=== PATIENT | female | born 1965 | race American Indian/Alaskan Native ===

== ENCOUNTER 2016-11-16 10:49 | Outpatient (CLI) | payer MEDICAID ==
--- NOTE | 2016-11-16 15:44 | Cat Scan Report ---
CT LUMBAR SPINE WITHOUT CONTRAST: 11/16/16 10:49:00 CLINICAL: Spondylosis with radiculopathy. TECHNIQUE: Volumetric acquisition and 1.25-mm axial scan reconstructions without contrast. Sagittal and coronal reformats were performed. FINDINGS: Normal vertebral body height, alignment and disk spaces. No fracture or subluxation.No pars defect. L1-2:Intact disc. Bilateral facet hypertrophy. L2-3:Intact disc. Bilateral facet hypertrophy. L3-4:Mild circumferential disc bulge. Large anterior osteophytes. Moderate bilateral facet hypertrophy. No neural foraminal stenosis. L4-5:Moderate size broad-based central disc protrusion. Marked bilateral facet hypertrophy and moderate left neural foraminal stenosis related to both disc protrusion and facet enlargement. L5-S1:Moderate circumferential disc bulge. Bilateral facet hypertrophy and moderate bilateral neural foraminal stenosis. IMPRESSION: Moderate degenerative change with multilevel facet joint disease and neural foraminal stenosis.
== END 2016-11-16 10:50 | disposition home or self-care (01) ==
LOC: SPVIMAG 10:49
PROVIDERS: ATTEND Physical Medicine & Rehabilitation
DX: M47.27 Other spondylosis with radiculopathy, lumbosacral region (principal); M99.53 Intervertebral disc stenosis of neural canal of lumbar region
CPT/HCPCS: 72131

== ENCOUNTER 2018-09-19 06:21 | Day surgery (SDC) | payer MEDICARE ==
--- NOTE | 2018-09-19 08:07 | Anesthesia Consultation ---
Anesthesia Consult and Med Hx Date of service: 09/19/18 - Airway Anesthetic Teeth Evaluation: Chipped ROM Head & Neck: Adequate Mental/Hyoid Distance: Adequate Mallampati Class: Class III Intubation Access Assessment: Probably Good - Pre-Operative Health Status ASA Pre-Surgery Classification: ASA3 Proposed Anesthetic Plan: MAC - Pulmonary Hx Respiratory Symptoms: Yes (reactive airway disease) Hx Sleep Apnea: Yes - Cardiovascular System Hx Hypertension: Yes - Endocrine Hx Insulin Dependent Diabetes: Yes - Additional Comments Anesthesia Medical History Comments: C/s in 1995; Cholecystectomy in 2005; meniscus repair on left knee in 2012 & 2013.
--- NOTE | 2018-09-19 08:08 | Anesthesia Day of Surgery ---
Anesthesia Day of Surgery - Day of Surgery Patient Examined: Yes Patient H&P Reviewed: Yes Patient is NPO: Yes
[2018-09-19] MEDS ORDERED: NACL 0.9% 1000 ML 1,000 ML IV SCH (09:00)
[2018-09-19] MEDS ORDERED: VERSED ONE (09:06)
[2018-09-19] MEDS ORDERED: DIPRIVAN 10 MG/ML IV ONE (09:06)
[2018-09-19] MEDS ORDERED: WATER FOR IRRIG STERILE ONE (09:14)
[2018-09-19 10:17] VITALS: BP 106/67
--- NOTE | 2018-09-19 10:54 | Operative Report ---
PREOPERATIVE DIAGNOSIS: Morbid obesity. POSTOPERATIVE DIAGNOSES: Gastric ulcers, gastritis, gastric polyps. PROCEDURE: EGD with biopsies. COMPLICATIONS: None. BLEEDING: Minimal. SPECIMENS: 1. Antral biopsies for H. pylori. 2. Gastric polyps (antrum). INDICATIONS: The patient is a 52-year-old female with history of morbid obesity. She is here for preoperative EGD in preparation for weight loss surgery. Informed consent was obtained. DESCRIPTION OF PROCEDURE: The patient was brought to the operating suite where she was placed in the left lateral decubitus position and underwent MAC anesthesia. A bite block was placed and a timeout was called. A standard adult gastroscope was inserted into the oropharynx, down the esophagus, into the first portion of the duodenum. On retroflexion view, she was noted to have no hiatal hernia. There was evidence of gastritis located in the antrum as well as 2 small gastric ulcers in the antrum. I then took antral biopsies for H. pylori. I noted a gastric polyp located on the greater curvature of the stomach in the antrum measuring less than a centimeter. Biopsies of this was taken as well. After this, the air was desufflated, the gastroscope was removed. The patient tolerated the procedure well and was transferred to PACU in stable condition. [facility]# [id number] TONY/GABRIELLE
== END 2018-09-19 06:22 | disposition home or self-care (01) ==
LOC: GIO 06:21
PROVIDERS: ATTEND Specialist
DX: K29.70 Gastritis, unspecified, without bleeding (principal); E66.01 Morbid (severe) obesity due to excess calories; K25.9 Gastric ulcer, unspecified as acute or chronic, without hemorrhage or perforation; E78.00 Pure hypercholesterolemia, unspecified; I10 Essential (primary) hypertension; G47.30 Sleep apnea, unspecified; M19.90 Unspecified osteoarthritis, unspecified site; E11.9 Type 2 diabetes mellitus without complications; F32.9 Major depressive disorder, single episode, unspecified; Z88.5 Allergy status to narcotic agent; Z91.013 Allergy to seafood; Z79.899 Other long term (current) drug therapy; Z79.84 Long term (current) use of oral hypoglycemic drugs; Z90.49 Acquired absence of other specified parts of digestive tract; Z98.890 Other specified postprocedural states; Z88.8 Allergy status to other drugs, medicaments and biological substances; Z68.41 Body mass index [BMI] 40.0-44.9, adult
CPT/HCPCS: 43239; 82962; 88305; 88342; J2250; J2704; J7030

== ENCOUNTER 2018-12-05 11:45 | Inpatient (IN) | payer MEDICARE ==
--- NOTE | 2018-12-25 11:10 | Anesthesia Consultation ---
Anesthesia Consult and Med Hx Date of service: 12/26/18 - Airway Anesthetic Teeth Evaluation: Chipped ROM Head & Neck: Adequate Mental/Hyoid Distance: Adequate Mallampati Class: Class II Intubation Access Assessment: Probably Good - Pre-Operative Health Status ASA Pre-Surgery Classification: ASA3 Proposed Anesthetic Plan: General - Pulmonary Hx Smoking: Yes (Former) Hx Asthma: Yes ("Reactive Upper airway disease" last used inhaler 3-4mos ago) Hx Respiratory Symptoms: Yes (reactive airway disease) Hx Sleep Apnea: Yes (No CPAP) - Cardiovascular System Hx Hypertension: Yes (since 2013) Hx Coronary Artery Disease: No (Negative heart cath 2013) Hx Peripheral Vascular Disease: Yes - Central Nervous System Hx Psychiatric Problems: No - Endocrine Hx Insulin Dependent Diabetes: Yes - Hematic Hx Anemia: Yes (Past hx) - Other Systems Hx Alcohol Use: Yes (Occas) Hx Cancer: No Hx Obesity: Yes - Additional Comments Anesthesia Medical History Comments: No records available-pt states negative workup for gastric surgery
[2018-12-26] MEDS ORDERED: LACTATED RINGERS 1,000 ML IV SCH ×2 (06:00→07:00)
[2018-12-26] MEDS ORDERED: SUBLIMAZE IV PRN (06:00)
[2018-12-26] MEDS ORDERED: ZOFRAN IV PRN ×2 (06:00→06:33)
[2018-12-26] MEDS ORDERED: APRESOLINE IV PRN (06:33)
[2018-12-26] MEDS ORDERED: REGLAN IV PRN (06:33)
[2018-12-26] MEDS ORDERED: NACL BACTERIOSTATIC INFILTRATI ONE (06:47)
[2018-12-26] MEDS ORDERED: FLAGYL 500 MG/100 ML 500 MG/100 ML BAG IV NR (07:00)
[2018-12-26] MEDS ORDERED: LOVENOX SUB-Q NR (07:00)
[2018-12-26] MEDS ORDERED: LEVAQUIN 500MG/100ML 500 MG/100 ML BAG IV NR (07:00)
[2018-12-26] MEDS ORDERED: TRANSDERM-SCOP TD SCH (07:00)
--- NOTE | 2018-12-26 07:21 | Anesthesia Day of Surgery ---
Anesthesia Day of Surgery - Day of Surgery Patient Examined: Yes Patient H&P Reviewed: Yes Patient is NPO: Yes
[2018-12-26] MEDS ORDERED: XYLOCAINE 1% 20 mL ONE (07:38)
[2018-12-26] MEDS ORDERED: MARCAINE-EPI 0.5%-1:200,000 INFILTRATI ONE ×2 (07:39→10:27)
[2018-12-26] MEDS ORDERED: PEPCID IV ONE ×2 (07:44→10:00)
[2018-12-26] MEDS ORDERED: PEPCID PO NR (08:00)
[2018-12-26] MEDS ORDERED: VERSED IV NR (08:00)
[2018-12-26] MEDS ORDERED: KETALAR ONE (09:09)
[2018-12-26] MEDS ORDERED: SUBLIMAZE ONE (09:09)
[2018-12-26] MEDS ORDERED: DIPRIVAN 10 MG/ML IV ONE (09:09)
[2018-12-26] MEDS ORDERED: BRIDION IV ONE (10:21)
[2018-12-26] MEDS ORDERED: DECADRON ONE (10:25)
[2018-12-26] MEDS ORDERED: XYLOCAINE MPF 2% ONE (10:25)
[2018-12-26] MEDS ORDERED: ZEMURON IV ONE (10:25)
[2018-12-26] MEDS ORDERED: ROBINUL ONE (10:25)
[2018-12-26] MEDS ORDERED: BLOXIVERZ ONE (10:25)
[2018-12-26] MEDS ORDERED: QUELICIN ONE (10:25)
[2018-12-26] MEDS ORDERED: ZOFRAN ONE (10:25)
[2018-12-26] MEDS ORDERED: XYLOCAINE 1% 20 mL INFILTRATI ONE (10:28)
[2018-12-26] MEDS ORDERED: NACL 0.9% IR ONE ×2 (10:28→10:29)
[2018-12-26] MEDS ORDERED: NEO SYNEPHRINE/NS Syringe(OR USE) IV ONE (10:29)
[2018-12-26] MEDS ORDERED: DILAUDID ONE (11:33)
[2018-12-26] MEDS: DILAUDID IM PRN (11:33)
[2018-12-26] MEDS: TORADOL IV SCH ×3 (12:28→20:29)
[2018-12-26] MEDS: MYLICON PO PRN (14:50)
--- NOTE | 2018-12-26 16:33 | Operative Report ---
SURGEON: Scar Salgado MD PLASTIC PRESS MOLDER: Sasha Mercedes MD Fellow; Mandy Hatch MD, CSA PREOPERATIVE DIAGNOSIS: Morbid obesity. POSTOPERATIVE DIAGNOSIS: Morbid obesity. OPERATIONS: 1. Laparoscopic Annamarie-en-Y gastric bypass, 150 cm antecolic antegastric. 2. Laparoscopic hiatal hernia repair. 3. Upper endoscopy. ANESTHESIA: General endotracheal anesthesia. SPECIMENS: None. COMPLICATIONS: None. BLEEDING: Minimal. INDICATIONS: The patient is a 53-year-old female with a history of morbid obesity. She has undergone preoperative bariatric workup and presents for her planned operation. The risks, complications and alternatives had been discussed with the patient and informed consent was obtained. DESCRIPTION OF PROCEDURE: The patient was brought to the operating room, where she was placed in the supine position and underwent general endotracheal intubation. She received preoperative antibiotics and DVT prophylaxis. She was prepped and draped in the usual sterile fashion and then a timeout was called to ensure proper patient, indication and operation. Local analgesia was injected into the left upper quadrant with insertion of a Veress needle. Insufflation pressure was achieved to 15 mmHg. An intra-abdominal access was obtained via a 5 mm trocar at the prior incision site above the umbilicus in the midline. On intraabdominal view, there was no injury. Under direct visualization, a 12 mm port was placed to the right of the midclavicular line and 5 mm ports were placed in the right lateral subxiphoid and left lateral quadrant. The ligament of Treitz was identified and the bowel was run for 50 cm and then transected at this point with a white load stapler. The staple lines were cauterized for hemostasis. The bowel was run and an additional 150 cm antegrade and a jejunojejunostomy was then performed with another white load stapler. The common enterotomy was closed with another staple load. A Brolin stitch was placed and then the mesenteric defect was closed with a running 0 Surgidac suture. After this, the liver retractor was placed and the patient was repositioned in steep reverse Trendelenburg. The angle of His was dissected free and the gastroesophageal fat pad was removed. The hiatus was dissected out and she had a moderate hiatal hernia that was freed and reduced. Next, a 30 mL gastric pouch was sized starting with a retrogastric dissection utilizing electrocautery and blunt dissection. The gastric pouch was created utilizing several blue staple loads with the staple lines cauterized after each fire load for hemostasis. An anterior cruroplasty was then done using a 0 Surgidac suture in a U-stitch fashion. The Annamarie limb was then brought up to the gastric pouch using a medial and lateral 0 Surgidac sutures. A gastrotomy and enterotomy were performed and a gastrojejunostomy was then completed with a white load stapler. The common enterotomy was then closed with 2 layers of 2-0 running V-Loc suture. After this, Annamarie limb was clamped and the anastomosis was submerged in water. An upper endoscopy was performed, which was negative for any leak or intraluminal bleeding. Air was suctioned out. The gastroscope was removed. A 500 mL of normal saline was instilled into the left and right upper quadrant to help with postoperative gas pain and then all the ports were removed. Additional local was injected to all the port sites and the wounds were closed with 4-0 Monocryl. Sterile bandages were placed over top. The patient was then extubated and left the operating room in stable condition. Counts were correct. FINDINGS: 1. Moderate-sized hiatal hernia. 2. Negative leak test. JOB# [id number] TONY/GABRIELLE HARDIN
[2018-12-26] MEDS ORDERED: GLUCOPHAGE PO SCH (17:00)
--- NOTE | 2018-12-26 17:08 | Post Anesthesia Evaluation ---
- Post Anesthesia Evaluation Patient Participated: Yes Airway Patent: Yes Stable Respiratory Function: Yes Nausea/Vomiting: No Temp > 96.8F: Yes Pain Manageable: Yes Adequeate Hydration: Yes Anesthesia Complications: No
[2018-12-26] MEDS: PEPCID PO SCH (21:31)
[2018-12-26] MEDS: COREG PO SCH (21:31)
[2018-12-26] MEDS: NEURONTIN PO SCH (21:31)
[2018-12-26] MEDS ORDERED: ELAVIL PO SCH (22:00)
[2018-12-26] MEDS ORDERED: PRAVACHOL PO SCH (22:00)
[2018-12-27] MEDS: MYLICON PO PRN ×2 (00:05→12:54)
[2018-12-27] MEDS: DILAUDID IM PRN (00:06)
[2018-12-27] MEDS: COREG PO SCH ×2 (00:33→11:55)
[2018-12-27 04:39] LABS: Basophils % (Auto) 0.3 % (0.0-1.8); Eosinophils % (Auto) 0.1 % (0.0-4.3); Hematocrit 33.5 % (30.3-42.9); Hemoglobin 11.3 gm/dl (10.1-14.3); Lymphocytes # (Auto) 1.5 K/mm3 (1.2-5.4); Mean Corpuscular HGB Conc 34 % (30-34); Mean Corpuscular Volume 91 fl (79-97); Monocytes # (Auto) 1.1 K/mm3 (0.0-0.8); Platelet Count 403 K/mm3 (140-440); Red Blood Count 3.67 M/mm3 (3.65-5.03); Red Cell Distribution Width 14.6 % (13.2-15.2)
[2018-12-27 04:52] LABS: BUN/Creatinine Ratio 17; Blood Urea Nitrogen 15 mg/dL (7-17); Calcium 8.9 mg/dL (8.4-10.2); Hemolysis Index 32
[2018-12-27] MEDS: TORADOL IV SCH ×3 (05:12→14:52)
[2018-12-27] MEDS: NEURONTIN PO SCH ×2 (05:18→15:15)
--- NOTE | 2018-12-27 06:51 | Discharge Summary ---
Providers - Providers Date of Admission: 12/26/18 06:08 Date of discharge: 12/27/18 Attending physician: SAMANTA SALGADO Primary care physician: ALONZO LUO Hospitalization Reason for admission: postop care Condition: Good Procedures: 12/26/18: Laparoscopic RYGB, HHR Hospital course: 53F admitted after her operation for routine postop monitoring. She had no major issues, ambulated, pain controlled, tolerated a CLD, and was dc home POD1. Disposition: DC-01 TO HOME OR SELFCARE Core Measure Documentation - Palliative Care Palliative Care/ Comfort Measures: Not Applicable - Core Measures Any of the following diagnoses?: none - VTE Discharge Requirements Deep Vein Thrombosis/Pulmonary Embolism Present on Admission: No - Acute PR Discharge Requirements Aspirin at discharge: No Reason for no aspirin on DC: Surgical contraindication - Heart Failure Discharge Requirements TEO/ARB for LVSD if EF <40%: Not Applicable - Stroke Discharge Requirements Statin for LDL = or >70 mg/dl on DC: Not Applicable Exam - Physical Exam Narrative exam: Gen: AAO, NAD Heart: RRR Lungs: CTAB Abd: MO, soft, NT, ND. Bandages c/d/i. Ext: No LE edema - Constitutional Vitals: Temp Pulse Resp BP Pulse Ox 98.0 F 97 H 18 126/77 97 12/27/18 03:54 12/27/18 03:54 12/27/18 03:54 12/27/18 03:54 12/27/18 03:54 Plan Diet: clear liquids Wound: keep clean and dry Special Instructions: no heavy lifting Additional Instructions: Cesar Salgado as scheduled Follow up with: ALONZO LUO MD [Primary Care Provider] - 7 Days
[2018-12-27] MEDS ORDERED: LOVENOX SUB-Q SCH (10:00)
[2018-12-27] MEDS ORDERED: ZESTRIL PO SCH (10:00)
[2018-12-27] MEDS: PEPCID PO SCH ×2 (12:00)
[2018-12-27 16:48] VITALS: BP 105/61
== END 2018-12-27 15:00 | disposition home or self-care (01) | DRG 621 ==
LOC: 3A 12-26 06:08 → 3B-SURG 12-26 12:03
PROVIDERS: ADMIT Specialist; ATTEND Specialist
PROC: 0D164ZA Bypass Stomach to Jejunum, Percutaneous Endoscopic Approach (ICD-10-PCS; principal; 2018-12-26)
PROC: 0BQT4ZZ Repair Diaphragm, Percutaneous Endoscopic Approach (ICD-10-PCS; 2018-12-26)
PROC: 0DJ08ZZ Inspection of Upper Intestinal Tract, Via Natural or Artificial Opening Endoscopic (ICD-10-PCS; 2018-12-26)
DX: E66.01 Morbid (severe) obesity due to excess calories (principal); E78.00 Pure hypercholesterolemia, unspecified; K30 Functional dyspepsia; G47.50 Parasomnia, unspecified; K21.9 Gastro-esophageal reflux disease without esophagitis; K44.9 Diaphragmatic hernia without obstruction or gangrene; J45.909 Unspecified asthma, uncomplicated; I10 Essential (primary) hypertension; E11.51 Type 2 diabetes mellitus with diabetic peripheral angiopathy without gangrene; Z79.84 Long term (current) use of oral hypoglycemic drugs; Z84.89 Family history of other specified conditions; Z88.5 Allergy status to narcotic agent; Z91.013 Allergy to seafood; Z88.8 Allergy status to other drugs, medicaments and biological substances; Z91.018 Allergy to other foods; Z87.891 Personal history of nicotine dependence; Z68.42 Body mass index [BMI] 45.0-49.9, adult; Z90.49 Acquired absence of other specified parts of digestive tract
CPT/HCPCS: 36415; 80048; 82962; 85025; G0378; A4217; A9270-GY; J0330; J1100; J1170; J1650; J1885; J1956; J2250; J2370; J2405; J2704; J2710; J2765; J3010; J7120

== ENCOUNTER 2021-09-03 11:47 | Inpatient (IN) | payer MEDICARE ==
[2021-09-03] MEDS ORDERED: ALTEPLASE 100 MG INJ KIT ONE (12:00)
[2021-09-03] MEDS ORDERED: ALTEPLASE 100 MG INJ KIT IV ONE ×2 (12:13)
[2021-09-03] MEDS ORDERED: SODIUM CHLORIDE 0.9% 50 ML IVPB IV ONE (12:13)
--- NOTE | 2021-09-03 12:16 | Cat Scan Report ---
CT head/brain wo con INDICATION / CLINICAL INFORMATION: 55 years Female; CODE STROKE CALL ER MAIN AT 8199 Stroke symptoms. TECHNIQUE: Routine CT head without contrast. All CT scans at this location are performed using CT dos e reduction for ALARA by means of automated exposure control. COMPARISON: None. FINDINGS: BRAIN / INTRACRANIAL CONTENTS: There are milder cerebral white matter changes including the external capsules most consistent with microvascular angiopathy. The ventricular system is within normal limit s in size and configuration. There is no CT evidence of acute intracranial hemorrhage or significant mass effect. ORBITS: There is a focal defect involving medial left orbital wall which appears to be developmental or related to previous trauma. SINUSES / MASTOIDS: The paranasal sinuses are otherwise clear. CRANIOCERVICAL JUNCTION: No significant abnormality. ADDITIONAL FINDINGS: None. IMPRESSION: 1. There is mild microvascular angiopathy as detailed above without CT evidence of acute intracranial hemorrhage. The study was specified as code stroke and called emergently to Dr. Briceno in the ER at 11:10 AM Cent ral standard time. Signer Name: Jordin Schroeder MD Signed: 09/03/2021 12:12 PM Workstation Name[id number]
--- NOTE | 2021-09-03 12:33 | Emergency Department Report ---
Blank Doc - Documentation Documentation: Welcome Teleneurology Consult Note # Demographics Consult Type: Acute Stroke Level 1 (0-4.5 hrs) Patient Location: Emergency Room First Name: Khadra Last Name: Sherif Gender: Male Facility: [facility] Time of Initial Page ( Time): 09/03/2021, 11:22 Time of Return Call ( Time): 09/03/2021, 11:22 # HPI History: pt had a syncopal episode around 1030, was having chest pain. some telephoto engineer weakness reported. possibly well at 1030 she rerots left sdied numbness Possible Thrombolytic candidate: not on warfarin or NOACs no intracranial hemorrhage history no recent major surgery no known active major internal bleeding no known blood disorders # Scores Time of exam and NIHSS (): 09/03/2021, 11:43 Level of Consciousness 1a: [0] = Alert; keenly responsive LOC Questions 1b: [0] = Answers both questions correctly LOC Commands 1c: [0] = Performs both tasks correctly Best Gaze 2: [0] = Normal Visual 3: [0] = No visual loss Facial Palsy 4: [1] = Minor paralysis Motor Arm Left 5a: [2] = Some effort against gravity Motor Arm Right 5b: [0] = No drift Motor Leg Left 6a: [0] = No drift Motor Leg Right 6b: [0] = No drift Limb Ataxia 7: [0] = Absent Sensory 8: [0] = Normal Best Language 9: [0] = No aphasia Dysarthria 10: [1] = Fmcw-ed-brqqqjip dysarthria Extinction and Inattention 11: [0] = No abnormality NIHSS Total: 4 # Data Head CT: no bleed preliminarily reviewed by me, please refer to radiology read for official reading preliminary read # Assessment Impression: Ischemic Stroke (Acute) # Plan Thrombolytic/Intervention: IV Thrombolysis Intraarterial Exclusion: clinically consistent with small vessel disease Time IV Thrombolytic Recommended (): 09/03/2021, 11:45 Blood Pressure Management: nicardipine labetolol Labs: hemoglobin A1c lipid panel Imaging: (urgency: STAT): CT Angiogram Head and CT Angiogram Neck AND call back with results if abnormal Imaging: (urgency: routine): MRI Brain without contrast Diagnostic Test: echo without bubble study Therapy/Evaluation: NPO until swallow evaluation PT/OT evaluation speech/swallow consultation Medication: start statin with goal of LDL < 70 DVT Prophylaxis: SCD Thrombolytic Administration Recommendations: Unable to obtain informed consent due to medical condition. No family available. In my opinion, benefits of IV thrombolytic therapy outweigh risks. I have collected independent history specific to time last normal or last known well. We have collaborated with the ED provider and at this time, we have the most current timeline with the information that is available. BP goal< 180/105 for 24hrs post Thrombolytic administration Use Labetolol 10-20mg IV prn or Nicardipine gtt to maintain BP parameters No antiplatelets or anticoagulants for next 24 hrs unless indicated for emergent IA procedure or other life threatening situation ICU admission Call back if there is any decline in neurological condition Other: LDL < 70 If patient has any neurological deterioration please call me back immediately permissive hypertension telemetry monitoring I have discussed my recommendations with the referring provider # [employer] Telemedicine: Interactive 2 way audio and visual telecommunication technology was utilized during this visit
[2021-09-03 12:49] LABS: Hematocrit 33.2 % (30.3-42.9); Hemoglobin 11.6 gm/dl (10.1-14.3); Mean Corpuscular HGB Conc 35 % (30-34); Mean Corpuscular Volume 97 fl (79-97); Platelet Count 433 K/mm3 (140-440); Red Blood Count 3.44 M/mm3 (3.65-5.03); Red Cell Distribution Width 12.9 % (13.2-15.2)
[2021-09-03 12:53] LABS: Basophils % (Auto) 0.7 % (0.0-1.8); Eosinophils # (Auto) 0.1 K/mm3 (0.0-0.4); Eosinophils % (Auto) 2.1 % (0.0-4.3); Lymphocytes # (Auto) 1.9 K/mm3 (1.2-5.4); Lymphocytes % (Auto) 46.2 % (13.4-35.0); Monocytes # (Auto) 0.6 K/mm3 (0.0-0.8); Monocytes % (Auto) 13.6 % (0.0-7.3)
--- NOTE | 2021-09-03 12:53 | Cat Scan Report ---
CTA head with intravenous contrast CLINICAL HISTORY: stroke sx LEFT SIDE WEAKNESS 100 ML OMNI 350 TECHNIQUE: 0.625 mm thick contiguous axial scans were obtained from the skull base to the skull vertex during r apid bolus administration of intravenous contrast material. Multiplanar reconstructions were produced in the coronal and sagittal planes. In addition 3 plane MIP instructions were produced and reviewed for this report. The axial source images and reconstructed images were reviewed for this report. CONTRAST DOSE REPORT: Omnipaque 350: 100 ml administered intravenously. All CT scans at this location are performed using CT dose reduction for ALARA by means of automated e xposure control. FINDINGS: Internal carotid arteries: Calcified atherosclerotic plaque is seen at the ophthalmic and clinoid seg ments of both internal carotid arteries with extension into the communicating segment on the right. T here is no definite associated stenosis. Middle cerebral arteries:Normal and symmetrical M1 segments of the middle cerebral arteries are demon strated. No abnormalities are seen on evaluation of the insular or opercular branches. Anterior cerebral arteries:Bilaterally symmetrical A1 segments are demonstrated. No abnormalities are seen along the course of the A2 segments or their visualized pericallosal branches. I do not identif y an anterior communicating artery. Vertebral arteries:Bilaterally symmetrical vertebral arteries are demonstrated. Both vertebral arteri es contribute to the basilar artery origin. Basilar artery:Basilar artery has an unremarkable appearance. Posterior cerebral arteries:Bilaterally symmetrical posterior cerebral arteries are identified. A ri ght-sided posterior communicating artery is identified. [place]:Not intact. see above. Dural sinuses: Dural venous sinuses are well demonstrated on this exam. There is no evidence of dural sinus thrombosis. IMPRESSION: 1. No indication of intercranial stenosis or large vessel occlusion. Signer Name: Yousuf Hector MD Signed: 09/03/2021 12:49 PM Workstation Name: [id number]
--- NOTE | 2021-09-03 12:53 | Cat Scan Report ---
CTA neck without and with intravenous contrast material CLINICAL HISTORY: stroke sx LEFT SIDE WEAKNESS 100 ML OMNI 350 TECHNIQUE: Following acquisition of a timing bolus 0.625 mm thick contiguous axial scans were obtained from aort ic arch to the skull base during rapid bolus intravenous contrast infusion. In addition to evaluation of axial source images multiplanar reconstructions were produced and reviewed for this report. 3 mulugeta ne MIP reconstructions were produced and reviewed. Contrast dose report: Omnipaque 350: 100 ml, administered intravenously All CT examinations performed at this facility utilize modulated dose reduction, iterative reconstruc tion or weight-based dosing, as appropriate, to obtain a radiation dose which is as low as can reason ably be achieved. FINDINGS: Thoracic aorta:No abnormalities are identified along the course of the thoracic aorta..The origins of the great vessels have an unremarkable appearance. Brachiocephalic artery, left common carotid arter y origin and left subclavian artery all have an unremarkable appearance. Right carotid artery:No abnormalities are seen along the course of the RCCA, at the right carotid bif urcation or along the cervical portions of the HENRY. Left carotid artery: No abnormalities are noted along the course of the left common carotid artery, a t the left carotid bifurcation or along the course of the cervical segments of the LICA. Posterior circulation:Left vertebral artery is dominant. Right vertebral artery terminates at the lev el of the right PICA. This is a normal anatomical variation. The basilar artery has an unremarkable a ppearance. The degree of stenosis, if any, is determined utilizing NASCET like criteria. In this case there is no indication of hemodynamically significant stenosis at the carotid bifurcations or elsewhere. Thyroid gland is enlarged consistent with thyroid goiter. Several low-attenuation thyroid nodules or cysts are demonstrated bilaterally. These are all less than 8 mm in diameter. Based on patient's age and lesion size criteria no further evaluation is required. Evaluation of the nonvascular soft tissue structures reveal no additional abnormality. There is no in dication of cervical lymphadenopathy. No abnormalities are seen along the course of the airway. Visua lized portions of the parotid glands and the submandibular salivary glands have a normal appearance. Evaluation of the lung apices reveals no evidence of lung nodule or infiltrate. Evaluation of the cervical spine is remarkable remarkable for a moth-eaten appearance of vertebrae at and below the C6 level. This is most pronounced at the T1 vertebral body where there is discontinuit y of cortex on the posterior aspect of the T1 vertebral body.. Increased paraspinous soft tissue full ness is also observed at the T1 level. Consider the possibility of metastatic disease or multiple mye barbara. Is there a known primary neoplasm Further evaluation with MRI cervical, thoracic and lumbar spi ne could be considered. IMPRESSION: 1. No indication of hemodynamically significant stenosis or large vessel occlusion. 2. Incidental thyroid nodules in the left lobe measuring 0.7 cm in a patient greater than age 35. Rec ommendation based on ACR guidelines: No further evaluation required. 3. Enlarged thyroid. Consider thyroid goiter. 4. Abnormal appearing cervical and upper thoracic vertebrae. This is most pronounced at the T1 level. Possibilities of metastatic disease or multiple myeloma should be considered. Further evaluation is advised. CTA head with intravenous contrast CLINICAL HISTORY: stroke sx LEFT SIDE WEAKNESS 100 ML OMNI 350 TECHNIQUE: 0.625 mm thick contiguous axial scans were obtained from the skull base to the skull vertex during r apid bolus administration of intravenous contrast material. Multiplanar reconstructions were produced in the coronal and sagittal planes. In addition 3 plane MIP instructions were produced and reviewed for this report. The axial source images and reconstructed images were reviewed for this report. CONTRAST DOSE REPORT: Omnipaque 350: 100 ml administered intravenously. All CT scans at this location are performed using CT dose reduction for [place] by means of automated e xposure control. FINDINGS: Internal carotid arteries: Calcified atherosclerotic plaque is seen at the ophthalmic and clinoid seg ments of both internal carotid arteries with extension into the communicating segment on the right. T here is no definite associated stenosis. Middle cerebral arteries:Normal and symmetrical M1 segments of the middle cerebral arteries are demon strated. No abnormalities are seen on evaluation of the insular or opercular branches. Anterior cerebral arteries:Bilaterally symmetrical A1 segments are demonstrated. No abnormalities are seen along the course of the A2 segments or their visualized pericallosal branches. I do not identif y an anterior communicating artery. Vertebral arteries:Bilaterally symmetrical vertebral arteries are demonstrated. Both vertebral arteri es contribute to the basilar artery origin. Basilar artery:Basilar artery has an unremarkable appearance. Posterior cerebral arteries:Bilaterally symmetrical posterior cerebral arteries are identified. A ri ght-sided posterior communicating artery is identified. [place]:Not intact. see above. Dural sinuses: Dural venous sinuses are well demonstrated on this exam. There is no evidence of dural sinus thrombosis. IMPRESSION: 1. No indication of intercranial stenosis or large vessel occlusion. Signer Name: Yousuf Hector MD Signed: 09/03/2021 12:48 PM Workstation Name: [id number]
[2021-09-03 12:59] LABS: INR 0.93 (0.87-1.13); Partial Thromboplastin Time 27.8 Sec. (24.2-36.6); Thrombin Time 17.6 Sec. (15.1-19.6)
[2021-09-03 13:01] LABS: Creatine Kinase MB 2.1 ng/mL (0.0-4.0)
[2021-09-03] MEDS ORDERED: MAGNESIUM HYDROXIDE (MOM) ORAL LIQD UDC PO PRN (13:12)
[2021-09-03] MEDS ORDERED: ONDANSETRON 4 MG/2 ML INJ IV PRN (13:12)
[2021-09-03] MEDS ORDERED: METOCLOPRAMIDE 10 MG TAB PO PRN (13:12)
[2021-09-03] MEDS ORDERED: HYDROmorphone 1 MG/1 ML INJ IV PRN (13:12)
[2021-09-03] MEDS ORDERED: PROMETHAZINE 25 MG RECT SUPP PR PRN (13:12)
[2021-09-03] MEDS ORDERED: oxyCODONE /ACETAMINOPHEN 5-325MG TAB PO PRN (13:12)
--- NOTE | 2021-09-03 13:12 | History and Physical Report ---
History of Present Illness Chief complaint: I feel weak, left side History of present illness: 55 YO Female with HTN, DM, GERD, HLD, OA, Mild Intermittent Asthma, Metabolic Syndrome presents ED for evaluation. Patient reports "I do not feel well". Patient states that she experienced a sudden onset of left-sided weakness, slurred speech, and facial droop at 1030 hrs. Patient notified her daughter via text. EMS was notified and upon arrival the patient was found down and unable to stand and bear weight on her left lower extremity. The patient was found to be in distress with a focal neurologic deficit. A code stroke was called and the patient was transported to [facility] for further care and evaluation of the af orementioned symptoms. The patient was seen and evaluated in the emergency department. All lab and imaging studies reviewed. Patient found to have clinical findings consistent with acute CVA. Patient treated with TPA in the emergency department. Teleneurology consulted. Patient admitted to ICU and initiated on CVA protocol. Patient denies fever, chills, chest pain, palpitation, productive cough, skin rash or recent contact, or known exposure to COVID-19. No prior admission for review. All medication listed at time of admission has been reconciled. Advanced care planning conducted in ED. Past History Past Medical History: arthritis, diabetes, GERD, hypertension, hyperlipidemia, other (See HPI) Past Surgical History: cholecystectomy Social history: , Lives alone. denies: smoking, alcohol abuse, prescription drug abuse Family history: diabetes, hypertension Medications and Allergies Allergies Allergy/AdvReac Type Severity Reaction Status Date / Time acetaminophen [From Vicodin] Allergy THROAT Verified 12/15/18 15:35 SWELLS codeine Allergy THROAT Verified 12/15/18 15:35 SWELLS hydrocodone [From Vicodin] Allergy THROAT Verified 12/15/18 15:35 SWELLS Penicillins Allergy Throat Verified 12/15/18 15:35 swells wheat Allergy Hives Verified 12/15/18 15:35 FRESH FISH Allergy Hives Uncoded 09/19/18 06:28 Home Medications Medication Instructions Recorded Confirmed Last Taken Type Fosinopril Sodium 10 - 12.5 mg PO DAILY 09/19/18 12/26/18 12/25/18 History Januvia 100 mg PO DAILY 09/19/18 12/26/18 12/25/18 History Jardiance 10 mg PO DAILY 09/19/18 12/26/18 12/25/18 History Simvastatin 40 mg PO DAILY 09/19/18 12/26/18 12/25/18 History metFORMIN 1,000 mg PO BID 09/19/18 12/26/18 12/25/18 History Amitriptyline [Elavil] 50 mg PO QHS 12/26/18 12/26/18 12/25/18 History Carvedilol 12.5 mg PO BID 12/26/18 12/26/18 12/25/18 History Fluticasone [Flonase] 1 spray IH PRN 12/26/18 12/26/18 12/25/18 History Gabapentin 300 mg PO Q8HR 12/26/18 12/26/18 12/25/18 History Omeprazole 40 mg PO DAILY 12/26/18 12/26/18 12/25/18 History raNITIdine HCl [Zantac] 150 mg PO BID 12/26/18 12/26/18 12/25/18 History Review of Systems Constitutional: no weight loss, no weight gain, no chills, no sweats Ears, nose, mouth and throat: no ear pain, no ear discharge, no tinnitis, no nose pain, no sinus pressure Cardiovascular: no chest pain, no palpitations, no edema, no syncope Respiratory: no cough, no hemoptysis, no shortness of breath Gastrointestinal: no abdominal pain, no diarrhea, no constipation, no hematemesis Genitourinary Female: no pelvic pain, no flank pain, no dysuria, no urinary frequency, no urgency, no stress incontinence Rectal: no pain, no incontinence, no bleeding Musculoskeletal: no neck stiffness, no neck pain, no arm numbness/tingling, no shooting leg pain, no leg numbness/tingling Integumentary: no rash, no redness, no sores, no jaundice, no boils Neurological: numbness, ataxia, lack of coordination, change in speech, balance difficulties, gait dysfunction, motor disturbance Psychiatric: no anxiety, no change in sleep habits, no insomnia, no change in appetite, no suicidal ideation, no disorientation Endocrine: no cold intolerance, no polydipsia, no excessive sweating, no fl ushing Hematologic/Lymphatic: no easy bruising, no easy bleeding Allergic/Immunologic: no urticaria, no allergic rhinitis, no wheezing Exam - Constitutional Vitals: Temp Pulse Resp BP Pulse Ox 66 14 150/79 100 09/03/21 13:11 09/03/21 13:11 09/03/21 13:11 09/03/21 13:11 General appearance: Present: mild distress - EENT Eyes: Present: PERRL ENT: hearing intact, clear oral mucosa - Neck Neck: Present: supple, normal ROM - Respiratory Respiratory effort: normal Respiratory: bilateral: CTA - Cardiovascular Heart Sounds: Present: S1 & S2. Absent: rub, click - Extremities Extremities: pulses symmetrical, No edema Peripheral Pulses: within normal limits - Abdominal General gastrointestinal: Present: soft, non-tender, non-distended, normal bowel sounds Female genitourinary: Present: normal - Integumentary Integumentary: Present: clear, warm, dry - Musculoskeletal Musculoskeletal: left sided weakness - Psychiatric Psychiatric: appropriate mood/affect, intact judgment & insight - Neurologic Neurologic: CNII-XII intact, moves all extremities HEART Score - HEART Score Troponin: Troponin T < 0.010 ng/mL (0.00-0.029) 09/03/21 12:43 Results - Labs CBC & Chem 7: 09/03/21 11:53 09/03/21 12:43 Labs: Abnormal lab results 09/03/21 Range/Units 11:53 WBC 4.3 L (4.5-11.0) K/mm3 RBC 3.44 L (3.65-5.03) M/mm3 MCH 34 H (28-32) pg MCHC 35 H (30-34) % RDW 12.9 L (13.2-15.2) % Lymph % (Auto) 46.2 H (13.4-35.0) % [place] % (Auto) 13.6 H (0.0-7.3) % Seg Neutrophils % 37.4 L (40.0-70.0) % Seg Neutrophils # 1.6 L (1.8-7.7) K/mm3 Assessment and Plan - Patient Problems (1) Acute CVA (cerebrovascular accident) Current Visit: Yes Status: Acute Plan to address problem: CVA protocol: TPA administered in the ED. Antiplatelet therapy, CT head, neuro check, seizure precautions, aspiration precautions, fall precautions, lipid panel, statin therapy, carotid Doppler, echocardiogram, physical therapy consulted, Occupational Therapy consulted, speech therapy consulted. Tele- neurology consulted in ED. (2) Left hemiparesis Current Visit: Yes Status: Acute Plan to address problem: Physical therapy consulted, supportive care. (3) Hypertension Current Visit: Yes Status: Acute Qualifiers: Hypertension type: primary hypertension Qualified Code(s): I10 - Essential (primary) hypertension Plan to address problem: Monitor blood pressure every shift, continue medical management. Continue prehospital antihypertensive therapy. Permissive hypertension overnight. (4) Diabetes Current Visit: Yes Status: Acute Plan to address problem: Consistent carbohydrate diet, Accu-Chek, hypoglycemia protocol, insulin protocol. (5) Hyperlipidemia Current Visit: Yes Status: Acute Qualifiers: Hyperlipidemia type: mixed hyperlipidemia Qualified Code(s): E78.2 - Mixed hyperlipidemia Plan to address problem: Lipid panel, statin therapy, low-cholesterol diet, supportive care. (6) GERD (gastroesophageal reflux disease) Current Visit: Yes Status: Acute Qualifiers: Esophagitis presence: without esophagitis Qualified Code(s): K21.9 - Gastro-esophageal reflux disease without esophagitis Plan to address problem: PPI therapy, supportive care (7) Osteoarthritis Current Visit: Yes Status: Acute Plan to address problem: Pain control, supportive care. (8) Metabolic syndrome Current Visit: Yes Status: Acute Plan to address problem: Balanced diet, increase physical activity discharge, (9) DVT prophylaxis Current Visit: Yes Status: Acute Plan to address problem: SCD to bilateral lower extremities while in bed (10) Advance care planning Current Visit: Yes Status: Acute Plan to address problem: Disease education conducted, care plan discussed, diagnoses discussed, prognosis discussed, patient is full code. Patient and daughter informed of care plan. Patient and daughter acknowledged understanding and agreement with care plan, +30 minutes.
[2021-09-03 13:17] LABS: Alanine Aminotransferase 30 units/L (7-56); Albumin 4.2 g/dL (3.9-5); BUN/Creatinine Ratio 40; Blood Urea Nitrogen 32 mg/dL (7-17); Calcium 9.2 mg/dL (8.4-10.2); Hemolysis Index 28
--- NOTE | 2021-09-03 13:34 | Emergency Department Report ---
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 denies: denies other symptoms, confusion, diaphoresis, fever/chills, malise, nausea/vomiting, vertigo Treatments Prior to Arrival: none - Related Data Home Medications: Home Medications Medication Instructions Recorded Confirmed Last Taken Fosinopril Sodium 10 - 12.5 mg PO DAILY 09/19/18 12/26/18 12/25/18 Januvia 100 mg PO DAILY 09/19/18 12/26/18 12/25/18 Jardiance 10 mg PO DAILY 09/19/18 12/26/18 12/25/18 Simvastatin 40 mg PO DAILY 09/19/18 12/26/18 12/25/18 metFORMIN 1,000 mg PO BID 09/19/18 12/26/18 12/25/18 Amitriptyline [Elavil] 50 mg PO QHS 12/26/18 12/26/18 12/25/18 Carvedilol 12.5 mg PO BID 12/26/18 12/26/18 12/25/18 Fluticasone [Flonase] 1 spray IH PRN 12/26/18 12/26/18 12/25/18 Gabapentin 300 mg PO Q8HR 12/26/18 12/26/18 12/25/18 Omeprazole 40 mg PO DAILY 12/26/18 12/26/18 12/25/18 raNITIdine HCl [Zantac] 150 mg PO BID 12/26/18 12/26/18 12/25/18 Allergies/Adverse Reactions: Allergies Allergy/AdvReac Type Severity Reaction Status Date / Time acetaminophen [From Vicodin] Allergy THROAT Verified 12/15/18 15:35 SWELLS codeine Allergy THROAT Verified 12/15/18 15:35 SWELLS hydrocodone [From Vicodin] Allergy THROAT Verified 12/15/18 15:35 SWELLS Penicillins Allergy Throat Verified 12/15/18 15:35 swells wheat Allergy Hives Verified 12/15/18 15:35 FRESH FISH Allergy Hives Uncoded 09/19/18 06:28 ED Review of Systems ROS: Stated complaint: STROKE Other details as noted in HPI Constitutional: denies: chills, fever Eyes: denies: eye pain, eye discharge, vision change ENT: denies: ear pain, throat pain Respiratory: denies: cough, shortness of breath, wheezing Cardiovascular: denies: chest pain, palpitations Endocrine: no symptoms reported Gastrointestinal: denies: abdominal pain, nausea, diarrhea Genitourinary: denies: urgency, dysuria, discharge Musculoskeletal: denies: back pain, joint swelling, arthralgia Skin: denies: rash, lesions Neurological: denies: headache, weakness, paresthesias Psychiatric: denies: anxiety, depression Hematological/Lymphatic: denies: easy bleeding, easy bruising ED Past Medical Hx - Past Medical History Hx Hypertension: Yes (since 2013) Hx Diabetes: Yes (since 2006) Hx GERD: Yes Hx Arthritis: Yes (Hands, back) Hx Asthma: Yes ("Reactive Upper airway disease" last used inhaler 3-4mos ago) - Surgical History Hx Cholecystectomy: Yes - Social History Smoking Status: Never Smoker - Medications Home Medications: Home Medications Medication Instructions Recorded Confirmed Last Taken Type Fosinopril Sodium 10 - 12.5 mg PO DAILY 09/19/18 12/26/18 12/25/18 History Januvia 100 mg PO DAILY 09/19/18 12/26/18 12/25/18 History Jardiance 10 mg PO DAILY 09/19/18 12/26/18 12/25/18 History Simvastatin 40 mg PO DAILY 09/19/18 12/26/18 12/25/18 History metFORMIN 1,000 mg PO BID 09/19/18 12/26/18 12/25/18 History Amitriptyline [Elavil] 50 mg PO QHS 12/26/18 12/26/18 12/25/18 History Carvedilol 12.5 mg PO BID 12/26/18 12/26/18 12/25/18 History Fluticasone [Flonase] 1 spray IH PRN 12/26/18 12/26/18 12/25/18 History Gabapentin 300 mg PO Q8HR 12/26/18 12/26/18 12/25/18 History Omeprazole 40 mg PO DAILY 12/26/18 12/26/18 12/25/18 History raNITIdine HCl [Zantac] 150 mg PO BID 12/26/18 12/26/18 12/25/18 History ED Neuro Physical Exam - General Limitations: Physical Limitation General appearance: alert, in distress Suspected Stroke: Yes - Head Head exam: Present: atraumatic, normocephalic - Eye Eye exam: Present: normal appearance - ENT ENT exam: Present: mucous membranes moist - Neck Neck exam: Present: normal inspection - Respiratory Respiratory exam: Present: normal lung sounds bilaterally. Absent: respiratory distress - Cardiovascular Cardiovascular Exam: Present: regular rate, normal rhythm. Absent: systolic murmur, diastolic murmur, rubs, gallop - GI/Abdominal GI/Abdominal exam: Present: soft, normal bowel sounds - Extremities Exam Extremities exam: Present: normal inspection - Back Exam Back exam: Present: normal inspection - Neurological Exam Neurological exam: Present: alert, oriented X3 - NIHSS Assessment Interval: Baseline 1a. Level of Consciousness: alert/keenly responsive 1b. LOC Questions: answers both correctly 1c. LOC Commands: performs tasks correctly 2. Best Gaze: normal 3. Visual: no visual loss 4. Facial Palsy: minor paralysis 5b. Motor Arm Right: no drift 5a. Motor Arm Left: some gravity effort 6a. Motor Leg Left: no drift 6b. Motor Leg Right: no drift 7. Limb Ataxia: absent 8. Sensory: normal 9. Best Language: no aphasia 10. Dysarthria: mild/moderate dysarthria 11. Extinction/Inattention: no abnormality Total Score: 4 Stroke Severity: Minor Stroke - Psychiatric Psychiatric exam: Present: normal affect, normal mood - Skin Skin exam: Present: warm, dry, intact, normal color. Absent: rash ED Course Vital Signs 09/03/21 09/03/21 09/03/21 12:20 12:30 12:34 Pulse Rate 67 90 75 Pulse Rate [ 68 Left Arm] Respiratory 13 11 L Rate Respiratory 15 Rate [Left Arm] Blood Pressure 125/73 138/93 Blood Pressure 125/73 [Left Arm] O2 Sat by Pulse 98 99 Oximetry O2 Sat by Pulse 98 Oximetry [Left Arm] 09/03/21 09/03/21 09/03/21 12:36 12:46 12:50 Pulse Rate 87 72 Pulse Rate [ Left Arm] Respiratory 13 Rate Respiratory Rate [Left Arm] Blood Pressure 138/93 144/94 Blood Pressure [Left Arm] O2 Sat by Pulse 100 96 Oximetry O2 Sat by Pulse Oximetry [Left Arm] 09/03/21 09/03/21 09/03/21 12:56 13:00 13:11 Pulse Rate 71 Pulse Rate [ 71 66 Left Arm] Respiratory 9 L Rate Respiratory 12 14 Rate [Left Arm] Blood Pressure 141/102 Blood Pressure 131/77 150/79 [Left Arm] O2 Sat by Pulse 100 Oximetry O2 Sat by Pulse 97 100 Oximetry [Left Arm] 09/03/21 13:26 Pulse Rate Pulse Rate [ 71 Left Arm] Respiratory Rate Respiratory 12 Rate [Left Arm] Blood Pressure Blood Pressure 131/80 [Left Arm] O2 Sat by Pulse Oximetry O2 Sat by Pulse 100 Oximetry [Left Arm] - Lab Data Result diagrams: 09/03/21 11:53 09/03/21 12:43 Lab Results 09/03/21 09/03/21 09/03/21 Range/Units 11:53 11:53 12:43 WBC 4.3 L (4.5-11.0) K/mm3 RBC 3.44 L (3.65-5.03) M/mm3 Hgb 11.6 (10.1-14.3) gm/dl Hct 33.2 (30.3-42.9) % MCV 97 (79-97) fl MCH 34 H (28-32) pg MCHC 35 H (30-34) % RDW 12.9 L (13.2-15.2) % Plt Count 433 (140-440) K/mm3 Lymph % (Auto) 46.2 H (13.4-35.0) % [place] % (Auto) 13.6 H (0.0-7.3) % Eos % (Auto) 2.1 (0.0-4.3) % Baso % (Auto) 0.7 (0.0-1.8) % Lymph # (Auto) 1.9 (1.2-5.4) K/mm3 [place] # (Auto) 0.6 (0.0-0.8) K/mm3 Eos # (Auto) 0.1 (0.0-0.4) K/mm3 Baso # (Auto) 0.0 (0.0-0.1) K/mm3 Seg Neutrophils % 37.4 L (40.0-70.0) % Seg Neutrophils # 1.6 L (1.8-7.7) K/mm3 PT 13.5 (12.2-14.9) Sec. INR 0.93 (0.87-1.13) APTT 27.8 (24.2-36.6) Sec. Thrombin Time 17.6 (15.1-19.6) Sec. Sodium 138 (137-145) mmol/L Potassium 4.9 (3.6-5.0) mmol/L Chloride 103.6 (98-107) mmol/L Carbon Dioxide 22 (22-30) mmol/L Anion Gap 17 mmol/L BUN 32 H (7-17) mg/dL Creatinine 0.8 (0.6-1.2) mg/dL Estimated GFR > 60 ml/min BUN/Creatinine Ratio 40 % Glucose 97 (65-100) mg/dL Calcium 9.2 (8.4-10.2) mg/dL Total Bilirubin 0.50 (0.1-1.2) mg/dL AST 25 (5-40) units/L ALT 30 (7-56) units/L Alkaline Phosphatase 83 (35-129) units/L Total Creatine Kinase 123 (30-135) units/L CK-MB (CK-2) 2.1 (0.0-4.0) ng/mL CK-MB (CK-2) Rel Index 1.7 (0-4) Troponin T < 0.010 (0.00-0.029) ng/mL Total Protein 7.5 (6.3-8.2) g/dL Albumin 4.2 (3.9-5) g/dL Albumin/Globulin Ratio 1.3 % Plasma/Serum Alcohol (0-0.07) % 09/03/21 Range/Units 12:43 WBC (4.5-11.0) K/mm3 RBC (3.65-5.03) M/mm3 Hgb (10.1-14.3) gm/dl Hct (30.3-42.9) % MCV (79-97) fl MCH (28-32) pg MCHC (30-34) % RDW (13.2-15.2) % Plt Count (140-440) K/mm3 Lymph % (Auto) (13.4-35.0) % [place] % (Auto) (0.0-7.3) % Eos % (Auto) (0.0-4.3) % Baso % (Auto) (0.0-1.8) % Lymph # (Auto) (1.2-5.4) K/mm3 [place] # (Auto) (0.0-0.8) K/mm3 Eos # (Auto) (0.0-0.4) K/mm3 Baso # (Auto) (0.0-0.1) K/mm3 Seg Neutrophils % (40.0-70.0) % Seg Neutrophils # (1.8-7.7) K/mm3 PT (12.2-14.9) Sec. INR (0.87-1.13) APTT (24.2-36.6) Sec. Thrombin Time (15.1-19.6) Sec. Sodium (137-145) mmol/L Potassium (3.6-5.0) mmol/L Chloride (98-107) mmol/L Carbon Dioxide (22-30) mmol/L Anion Gap mmol/L BUN (7-17) mg/dL Creatinine (0.6-1.2) mg/dL Estimated GFR ml/min BUN/Creatinine Ratio % Glucose (65-100) mg/dL Calcium (8.4-10.2) mg/dL Total Bilirubin (0.1-1.2) mg/dL AST (5-40) units/L ALT (7-56) units/L Alkaline Phosphatase (35-129) units/L Total Creatine Kinase (30-135) units/L CK-MB (CK-2) (0.0-4.0) ng/mL CK-MB (CK-2) Rel Index (0-4) Troponin T (0.00-0.029) ng/mL Total Protein (6.3-8.2) g/dL Albumin (3.9-5) g/dL Albumin/Globulin Ratio % Plasma/Serum Alcohol < 0.01 (0-0.07) % - Radiology Data Radiology results: image reviewed - Medical Decision Making pt was rolled back to CT , CT negative for acute bleed , neurology asessed patient , pt is TPA canddiate , TPA given started getting better CTA was negative for occlusive lesions, will admit to ICU Critical Care Time: Yes Critical care time in (mins) excluding proc time.: 65 Critical care attestation.: If time is entered above; I have spent that time in minutes in the direct care of this critically ill patient, excluding procedure time. Critical Care Time: 65 ED Disposition Clinical Impression: Acute CVA (cerebrovascular accident), Syncope, Left sided numbness Disposition: ADMITTED INPATIENT Is pt being admited?: Yes Does the pt Need Aspirin: No Condition: Fair Instructions: Syncope (ED) Referrals: [facility] [Other] - 3-5 Days
[2021-09-03] MEDS ORDERED: diphenhydrAMINE 50 MG/ML VIAL IV ONE (13:55)
[2021-09-03] MEDS ORDERED: FAMOTIDINE 20 MG/2 ML INJ IV ONE ×2 (13:55→13:56)
[2021-09-03] MEDS ORDERED: methylPREDNISolone Sod Succinate 125 MG/2 ML INJ IV ONE (13:55)
[2021-09-03] MEDS ORDERED: methylPREDNISolone Sod Succinate 125 MG/2 ML INJ ONE (13:56)
--- NOTE | 2021-09-03 14:30 | Vascular Lab Report ---
DUPLEX DOPPLER ULTRASOUND CAROTID, BILATERAL INDICATION / CLINICAL INFORMATION: stroke. COMPARISON: CTA neck 09/03/2021 FINDINGS: RIGHT CAROTID: - PLAQUE ESTIMATE (%): No significant plaque - CCA velocity: 86.8 cm/sec. - ICA peak systolic velocity: 105.0 cm/sec. - ICA/CCA PSV Ratio: 1.21 Right Vertebral Artery: Antegrade flow. LEFT CAROTID: - PLAQUE ESTIMATE (%): No significant plaque - CCA velocity: 96.9 cm/sec. - ICA peak systolic velocity: 97.8 cm/sec. - ICA/CCA PSV Ratio: 1.01 Left Vertebral Artery: Antegrade flow. IMPRESSION: 1. Right Internal Carotid Artery: No significant plaque or stenosis. 2. Left Internal Carotid Artery: No significant plaque or stenosis. Velocity criteria are extrapolated from diameter data as defined by the Society of Radiologists in Ul trasound Consensus Conference, Radiology 2003; 229;340-346. NO STENOSIS (NORMAL) - Plaque = none; ICA PSV < 125 cm/sec; ICA/CCA PSV Ratio < 2.0 <50% STENOSIS - Plaque < 50%; ICA PSV < 125 cm/sec; ICA/CCA PSV Ratio < 2.0 50-69% STENOSIS - Plaque > 50%; ICA PSV = 125-230 cm/sec; ICA/CCA PSV Ratio = 2.0-4.0 >70% BUT <100% STENOSIS - Plaque > 50%; ICA PSV > 230 cm/sec; ICA/CCA PSV Ratio > 4.0 NEAR OCCLUSION - Plaque = visible lumen; ICA PSV = high/low/none; ICA/CCA PSV Ratio = variable TOTAL OCCLUSION - Plaque = no lumen; ICA PSV = none; ICA/CCA PSV Ratio = N/A Signer Name: Baldev Mondragon MD Signed: 09/03/2021 2:26 PM Workstation Name: [id number]
[2021-09-03] MEDS: ACETAMINOPHEN 325 MG TAB PO PRN ×2 (17:19→23:49)
[2021-09-04 00:37] LABS: Bacteria,Urine 1+ /HPF (Negative); Bilirubin,Urine NEG (Negative); Blood,Urine NEG (Negative); Color,Urine Yellow (Yellow); Protein,Urine <15 mg/dL mg/dL (Negative); Urobilinogen,Urine < 2.0 mg/dL (<2.0)
[2021-09-04 00:48] LABS: Amphetamine Screen,Urine PRESUMPTIVE NEGATIVE; Benzodiazepines Screen,Urine PRESUMPTIVE NEGATIVE; Cannabinoid Screen,Urine PRESUMPTIVE NEGATIVE; Cocaine Screen,Urine PRESUMPTIVE NEGATIVE; Methadone Screen,Urine PRESUMPTIVE NEGATIVE; Opiate Screen,Urine PRESUMPTIVE NEGATIVE
[2021-09-04] MEDS ORDERED: diphenhydrAMINE 50 MG/ML VIAL IV ONE (03:03)
[2021-09-04] MEDS: traMADol 50 MG TAB PO PRN ×2 (08:50→22:17)
--- NOTE | 2021-09-04 09:22 | Cat Scan Report ---
CT HEAD WITHOUT CONTRAST INDICATION / CLINICAL INFORMATION: s/p tpa, headache. Cerebrovascular accident. TECHNIQUE: All CT scans at this location are performed using CT dose reduction for ALARA by means of automated e xposure control. COMPARISON: Head CT 09/03/2021 FINDINGS: HEMORRHAGE: No evidence of intracranial hemorrhage or extra-axial fluid collection. EXTRA-AXIAL SPACES: Cortical sulci, sylvian fissures and basilar cisterns have an unremarkable appear ance. VENTRICULAR SYSTEM: The third and lateral ventricles are of normal size and configuration. CEREBRAL PARENCHYMA: No areas of abnormal brain parenchymal attenuation are identified. There is no i ndication of recent infarction. MIDLINE SHIFT OR HERNIATION: There is no mass effect. CEREBELLUM / BRAINSTEM: Brainstem and cerebellum have an unremarkable appearance. MIDLINE STRUCTURES:No abnormalities of the pituitary gland or pineal region are identified. INTRACRANIAL VESSELS:No abnormalities are identified on this noncontrast head CT. ORBITS: visualized portions of the orbits have an unremarkable appearance. SOFT TISSUES of HEAD: No significant abnormality. CALVARIUM: Evaluation of bone windows reveals no abnormalities. PARANASAL SINUSES / MASTOID AIR CELLS: Visualized portions of the paranasal sinuses are free from inf lammatory mucosal disease. Mastoid air cells are normally pneumatized. IMPRESSION: 1. No significant abnormality identified on head CT without contrast. No interval change. Signer Name: Yousuf Hector MD Signed: 09/04/2021 9:18 AM Workstation Name: [id number]
--- NOTE | 2021-09-04 10:04 | Consultation ---
History of Present Illness - Reason for Consult Consult date: 09/04/21 - History of Present Illness [facility] Consult Note # Demographics Consult Type: Acute Stroke Level 1 (0-4.5 hrs) Patient Location: Inpatient First Name: Khadra Last Name: Sherif Date of : 1965 Age: 55 Gender: Female Facility: [facility] Time of Initial Page (Eastern Time): 09/04/2021, 09:44 Time of Return Call (Eastern Time): 09/04/2021, 09:45 # HPI History: patient had alteplase for acute stroke on 09/03. Had headache this morning. # Data Head CT from this morning: no bleed CTA Head: no large vessel occlusion CTA Neck: patent vessels # Assessment Impression: Ischemic Stroke (Acute) # Plan Target Blood Pressure: SBP < 180 SBP > 120 Labs: lipid panel Imaging: (urgency: routine): MRI Brain without contrast Diagnostic Test: fu on ECHO results Therapy/Evaluation: PT/OT evaluation Medication: aspirin 81 mg daily: to start at 24 hours post tPA infusion finish DVT Prophylaxis: SCD chemical DVT prophylaxis: to start at 24 hours post tPA infusion finish Other: LDL < 70 telemetry monitoring Past History Past Medical History: arthritis, diabetes, GERD, hypertension, hyperlipidemia, other (See HPI) Past Surgical History: cholecystectomy Social history: , Lives alone. denies: smoking, alcohol abuse, prescription drug abuse Family history: diabetes, hypertension Medications and Allergies Allergies Allergy/AdvReac Type Severity Reaction Status Date / Time codeine Allergy THROAT Verified 12/15/18 15:35 SWELLS hydrocodone [From Vicodin] Allergy THROAT Verified 12/15/18 15:35 SWELLS oxycodone [From Percocet] Allergy Hives Verified 09/03/21 21:07 Penicillins Allergy Throat Verified 12/15/18 15:35 swells wheat Allergy Hives Verified 12/15/18 15:35 FRESH FISH Allergy Hives Uncoded 09/19/18 06:28 Home Medications Medication Instructions Recorded Confirmed Last Taken Type Fosinopril Sodium 10 - 12.5 mg PO DAILY 09/19/18 12/26/18 12/25/18 History Januvia 100 mg PO DAILY 09/19/18 12/26/18 12/25/18 History Jardiance 10 mg PO DAILY 0412/26/18 12/25/18 History Simvastatin 40 mg PO DAILY 09/19/18 12/26/18 12/25/18 History metFORMIN 1,000 mg PO DAILY 09/19/18 12/26/18 1 Day Ago History ~09/03/21 1000 Amitriptyline [Elavil] 50 mg PO QHS 12/26/18 12/26/18 12/25/18 History Carvedilol 12.5 mg PO BID 12/26/18 12/26/18 12/25/18 History Fluticasone [Flonase] 1 spray IH PRN 12/26/18 12/26/18 12/25/18 History Gabapentin 300 mg PO Q8HR 12/26/18 12/26/18 12/25/18 History Omeprazole 40 mg PO DAILY 12/26/18 12/26/18 12/25/18 History raNITIdine HCl [Zantac] 150 mg PO BID 12/26/18 12/26/18 12/25/18 History Active Meds: Active Medications Acetaminophen (Acetaminophen 325 Mg Tab) 650 mg PO Q4H PRN PRN Reason: Pain, Mild (1-3) Last Admin: 09/03/21 23:49 Dose: 650 mg Aspirin (Aspirin 325 Mg Tab) 325 mg PO QDAY [facility] Atorvastatin Calcium (Atorvastatin 40 Mg Tab) 40 mg PO QHS [facility] Last Admin: 09/03/21 21:22 Dose: 40 mg Bisacodyl (Bisacodyl 10 Mg Rect Supp) 10 mg [place] QDAY PRN PRN Reason: Constipation Hydromorphone HCl (Hydromorphone 1 Mg/1 Ml Inj) 0.5 mg IV Q23H PRN PRN Reason: Pain , Severe (7-10) Last Admin: 09/03/21 21:21 Dose: 0.5 mg Magnesium Hydroxide (Magnesium Hydroxide (Mom) Oral Liqd Udc) 30 ml PO Q4H PRN PRN Reason: Constipation Metoclopramide HCl (Metoclopramide 10 Mg Tab) 10 mg PO Q6H PRN PRN Reason: Nausea And Vomiting Ondansetron HCl (Ondansetron 4 Mg/2 Ml Inj) 4 mg IV Q8H PRN PRN Reason: Nausea And Vomiting Promethazine HCl (Promethazine 25 Mg Rect Supp) 25 mg [place] Q6H PRN PRN Reason: Nausea And Vomiting Sodium Chloride (Sodium Chloride 0.9% 10 Ml Flush Syringe) 10 ml IV PRN PRN PRN Reason: LINE FLUSH Tramadol HCl (Tramadol 50 Mg Tab) 50 mg PO Q6H PRN PRN Reason: Pain, Moderate (4-6) Last Admin: 09/04/21 08:50 Dose: 50 mg Exam - Constitutional Vitals: Temp Pulse Resp BP Pulse Ox 98.5 F 86 12 127/83 98 09/04/21 07:14 09/04/21 09:15 09/04/21 09:15 09/04/21 09:15 09/04/21 09:54 Results - Labs CBC & Chem 7: 09/03/21 11:53 09/03/21 12:43 Labs: Abnormal lab results 09/03/21 09/03/21 09/03/21 Range/Units 11:53 12:43 23:07 WBC 4.3 L (4.5-11.0) K/mm3 RBC 3.44 L (3.65-5.03) M/mm3 MCH 34 H (28-32) pg MCHC 35 H (30-34) % RDW 12.9 L (13.2-15.2) % Lymph % (Auto) 46.2 H (13.4-35.0) % [place] % (Auto) 13.6 H (0.0-7.3) % Seg Neutrophils % 37.4 L (40.0-70.0) % Seg Neutrophils # 1.6 L (1.8-7.7) K/mm3 BUN 32 H (7-17) mg/dL POC Glucose 184 H (70-105) mg/dL 09/04/21 Range/Units 05:17 WBC (4.5-11.0) K/mm3 RBC (3.65-5.03) M/mm3 MCH (28-32) pg MCHC (30-34) % RDW (13.2-15.2) % Lymph % (Auto) (13.4-35.0) % [place] % (Auto) (0.0-7.3) % Seg Neutrophils % (40.0-70.0) % Seg Neutrophils # (1.8-7.7) K/mm3 BUN (7-17) mg/dL POC Glucose 120 H (70-105) mg/dL
--- NOTE | 2021-09-04 11:02 | Consultation ---
History of Present Illness Consult date: 09/04/21 Requesting physician: NAT TELLO Reason for consult: other (Crirtical care managment s/p TPA for stroke) History of present illness: 55 YO Female with HTN, DM, GERD, HLD, OA, Mild Intermittent Asthma, s/p Bariatric surgery, Metabolic Syndrome presents ED for evaluation. Patient reports "I do not feel well". Patient states that she experienced a sudden onset of left-sided weakness, slurred speech, and facial droop at 1030 hrs. Patient notified her daughter via text. EMS was notified and upon arrival the patient was found down and unable to stand and bear weight on her left lower extremity. The patient was found to be in distress with a focal neurologic deficit. A code stroke was called and the patient was transported to [facility] for further care and evaluation of the aforementioned symptoms. The patient was seen and evaluated in the emergency department. All lab and imaging studies reviewed. Patient found to have clinical findings consistent with acute CVA. Patient treated with TPA in the emergency department. Teleneurology consulted. Patient admitted to ICU and initiated on CVA protocol. Patient seen and examined. Vitals, albs, medications, chart reviewed. States she feels better this morning. Follow up CT head has been done; she declines a MRI brain as she states that she can only get an open MRI. Past History Past Medical History: arthritis, diabetes, GERD, hypertension, hyperlipidemia, other (See HPI) Past Surgical History: cholecystectomy Social history: , Lives alone. denies: smoking, alcohol abuse, prescription drug abuse Family history: diabetes, hypertension Medications and Allergies Allergies Allergy/AdvReac Type Severity Reaction Status Date / Time codeine Allergy THROAT Verified 12/15/18 15:35 SWELLS hydrocodone [From Vicodin] Allergy THROAT Verified 12/15/18 15:35 SWELLS oxycodone [From Percocet] Allergy Hives Verified 09/03/21 21:07 Penicillins Allergy Throat Verified 12/15/18 15:35 swells wheat Allergy Hives Verified 12/15/18 15:35 FRESH FISH Allergy Hives Uncoded 09/19/18 06:28 Home Medications Medication Instructions Recorded Confirmed Last Taken Type Fosinopril Sodium 10 - 12.5 mg PO DAILY 09/19/18 12/26/18 12/25/18 History Januvia 100 mg PO DAILY 09/19/18 12/26/18 12/25/18 History Jardiance 10 mg PO DAILY 09/19/18 12/26/18 12/25/18 History Simvastatin 40 mg PO DAILY 09/19/18 12/26/18 12/25/18 History metFORMIN 1,000 mg PO DAILY 09/19/18 12/26/18 1 Day Ago History ~09/03/21 1000 Amitriptyline [Elavil] 50 mg PO QHS 12/26/18 12/26/18 12/25/18 History Carvedilol 12.5 mg PO BID 12/26/18 12/26/18 12/25/18 History Fluticasone [Flonase] 1 spray IH PRN 12/26/18 12/26/18 12/25/18 History Gabapentin 300 mg PO Q8HR 12/26/18 12/26/18 12/25/18 History Omeprazole 40 mg PO DAILY 12/26/18 12/26/18 12/25/18 History raNITIdine HCl [Zantac] 150 mg PO BID 12/26/18 12/26/18 12/25/18 History Active Meds: Active Medications Acetaminophen (Acetaminophen 325 Mg Tab) 650 mg PO Q4H PRN PRN Reason: Pain, Mild (1-3) Last Admin: 09/03/21 23:49 Dose: 650 mg Aspirin (Aspirin Ec 81 Mg Tab) 81 mg PO QDAY [facility] Atorvastatin Calcium (Atorvastatin 40 Mg Tab) 40 mg PO QHS [facility] Last Admin: 09/03/21 21:22 Dose: 40 mg Bisacodyl (Bisacodyl 10 Mg Rect Supp) 10 mg [place] QDAY PRN PRN Reason: Constipation Hydromorphone HCl (Hydromorphone 1 Mg/1 Ml Inj) 0.5 mg IV Q23H PRN PRN Reason: Pain , Severe (7-10) Last Admin: 09/03/21 21:21 Dose: 0.5 mg Magnesium Hydroxide (Magnesium Hydroxide (Mom) Oral Liqd Udc) 30 ml PO Q4H PRN PRN Reason: Constipation Metoclopramide HCl (Metoclopramide 10 Mg Tab) 10 mg PO Q6H PRN PRN Reason: Nausea And Vomiting Ondansetron HCl (Ondansetron 4 Mg/2 Ml Inj) 4 mg IV Q8H PRN PRN Reason: Nausea And Vomiting Promethazine HCl (Promethazine 25 Mg Rect Supp) 25 mg [place] Q6H PRN PRN Reason: Nausea And Vomiting Sodium Chloride (Sodium Chloride 0.9% 10 Ml Flush Syringe) 10 ml IV PRN PRN PRN Reason: LINE FLUSH Tramadol HCl (Tramadol 50 Mg Tab) 50 mg PO Q6H PRN PRN Reason: Pain, Moderate (4-6) Last Admin: 09/04/21 08:50 Dose: 50 mg Review of Systems Constitutional: weight loss (lost 120 lbs in the last 2 yearrs post bariatric surgery), no weight gain, no fever, no chills, no sweats Cardiovascular: no chest pain, no orthopnea, no palpitations, no rapid/irregular heart beat, no edema, no syncope, no lightheadedness, no shortness of breath Respiratory: no cough, no hemoptysis, no shortness of breath, no dyspnea on exertion, no congestion, no wheezing Gastrointestinal: no abdominal pain, no nausea, no vomiting, no diarrhea, no constipation, no change in bowel habits, no hematemesis Neurological: no transient paralysis, no paralysis, no weakness, no parathesias, no seizures, no syncope, no tremors, no ataxia Psychiatric: no anxiety, no memory loss Physical Examination Vital signs: Vital Signs Pulse Resp Pulse Ox 67 13 98 09/03/21 12:20 09/03/21 12:20 09/03/21 12:20 General appearance: no acute distress, alert Eyes: non-icteric ENT: oropharynx moist Neck: supple, no lymphadenopathy, no JVD Effort: normal Ascultation: Bilateral: clear, diminished breath sounds Cardiovascular: regular rate and rhythm, other (S1,S2) Gastrointestinal: normoactive bowel sounds, soft, non-tender Integumentary: normal Extremities: no cyanosis, no edema, pink and warm, pulses normal normal mental status, non-focal exam, pupils equal and round, motor strength normal and mood appropriate, affect normal Results - Laboratory Findings CBC and BMP: 09/03/21 11:53 09/03/21 12:43 PT/INR, D-dimer PT 13.5 Sec. (12.2-14.9) 09/03/21 11:53 INR 0.93 (0.87-1.13) 09/03/21 11:53 Abnormal lab findings: Abnormal Labs 09/03/21 09/03/21 09/03/21 11:53 12:43 23:07 WBC 4.3 L RBC 3.44 L MCH 34 H MCHC 35 H RDW 12.9 L Lymph % (Auto) 46.2 H [place] % (Auto) 13.6 H Seg Neutrophils % 37.4 L Seg Neutrophils # 1.6 L BUN 32 H POC Glucose 184 H 09/04/21 05:17 WBC RBC MCH MCHC RDW Lymph % (Auto) [place] % (Auto) Seg Neutrophils % Seg Neutrophils # BUN POC Glucose 120 H Assessment and Plan Acute CVA (cerebrovascular accident) Left hemiparesis-resolved Hypertension Diabetes Hyperlipidemia GERD (gastro-esophageal reflux disease) Osteoarthritis Metabolic syndrome s/p TPA administered in the ED Anti-platelet therapy 24 hours after tPA administration Neuro check, seizure precautions, aspiration precautions, fall precautions Secondary stroke prophylaxis Consistent carbohydrate diet, Accu-Chek, Glycemic control, avoid hypoglycemia PT/OT to evaluate and treat Neurology consult Transthoracic echocardiogam Will continue to monitor in the ICU for 24 hours post tPA. If neurological status remains stable, can transfer out of the ICU
--- NOTE | 2021-09-04 12:39 | Progress Note ---
Assessment and Plan Assessment and plan: This is a 55-year-old female with past medical history of HTN, DM, GERD, HLD, OA, Mild Intermittent Asthma, and metabolic Syndrome admitted for acute CVA s/p TPA Hospital Course to Date: 09/04: Fully AAO, on RA, no neuro deficits appreciated. C/o of severe EUCEDA this am, CT head repeated with no significant abnormality. Patient is refusing MRI brain due to increase anxiety. Per patient she can only tolerate open MRIs. Orders placed for lipid panel, PT/OT/Speech, and 2D Echo. Thorough discussion with patient in regards of condition and plan of care. All questions and concerns were addressed at this time. If patient remains stable okay to transfer to Telemetry this afternoon, 24hrs post TPA. Assessment and Plan #Acute CVA (Cerebrovascular Accident) #Left Hemiparesis - Presented with sudden onset of left-sided weakness, slurred speech, and facial droop - Received TPA in the ED - No neuro deficits noted this am - patient c/o severe EUCEDA this am, CT head repeated with no no significant abnormality. - EUCEDA improved with PRN analagesia - Patient is refusing MRI brain due to increase anxiety - 2D Echo pending - Orders placed for Lipid panel and hgbA1c - Continue statin - Initiated Antiplatelets therapy and prophy AC 24hrs post TPA - Continue Neuro check per protocol - PT/OT/Speech ordered - TeleNeurology consulted #Hypertension - Stable this am - Permissive hypertension, hold Antihypertensive agents for today - Resumed home meds in the am - Continue blood pressure monitor per protocol #Type 2 Diabetes - HgbA1C pending - Consistent carbohydrate diet - BG and SSI ACHS - Avoid hypoglycemia #GERD (Gastroesophageal Reflux Disease) - Supportive Care - PPI- Pepcid #DVT Prophylaxis - SCD to bilateral lower extremities while in bed The high probability of a clinically significant, sudden or life threatening deterioration of the [multiple] system(s) required my full and direct attention, intervention and personal management. The aggregate critical care time was [60] minutes. This time is in addition to time spent performing reported procedures but includes the following: [x] Data Review and interpretation [x] Patient assessment and monitoring of vital signs [x] Documentation [x] Medication orders and management Disposition Plan: ICU Total Time Spent with Patient (Minutes): 60 History Interval history: Patient seen and examined at the bedside. Fully AAO, on RA. Complaint of severe headache this am which improved with PRN tramadol, CT head repeated. Patient is otherwise stable with no neuro deficits, JOHN overnight Hospitalist Physical - Constitutional Vitals: Temp Pulse Resp BP Pulse Ox 98.5 F 90 12 147/63 100 09/04/21 11:25 09/04/21 12:15 09/04/21 12:15 09/04/21 12:15 09/04/21 12:15 General appearance: Present: no acute distress, obese - EENT Eyes: Present: PERRL, EOM intact ENT: hearing intact, clear oral mucosa - Neck Neck: Present: normal ROM - Respiratory Respiratory effort: normal Respiratory: bilateral: CTA - Cardiovascular Rhythm: regular Heart Sounds: Present: S1 & S2 - Extremities Extremities: no ischemia, pulses intact, pulses symmetrical Extremity abnormal: edema - Peripheral Assessment Generalized Edema Type: Non-pitting Edema Degree: 1+ Capillary Refill: < 3 seconds Skin Temperature: Warm Peripheral Pulses: within normal limits - Abdominal General gastrointestinal: soft, non-distended, normal bowel sounds - Integumentary Integumentary: Present: clear, warm, dry - Psychiatric Psychiatric: appropriate mood/affect, cooperative - Neurologic Neurologic: CNII-XII intact, moves all extremities - Allied Health Allied health notes reviewed: nursing HEART Score - HEART Score Troponin: Troponin T < 0.010 ng/mL (0.00-0.029) 09/03/21 12:43 Results - Labs CBC & Chem 7: 09/03/21 11:53 09/03/21 12:43 Labs: Laboratory Last Values WBC 4.3 K/mm3 (4.5-11.0) L 09/03/21 11:53 RBC 3.44 M/mm3 (3.65-5.03) L 09/03/21 11:53 Hgb 11.6 gm/dl (10.1-14.3) 09/03/21 11:53 Hct 33.2 % (30.3-42.9) 09/03/21 11:53 MCV 97 fl (79-97) 09/03/21 11:53 MCH 34 pg (28-32) H 09/03/21 11:53 MCHC 35 % (30-34) H 09/03/21 11:53 RDW 12.9 % (13.2-15.2) L 09/03/21 11:53 Plt Count 433 K/mm3 (140-440) 09/03/21 11:53 Lymph % (Auto) 46.2 % (13.4-35.0) H 09/03/21 11:53 [place] % (Auto) 13.6 % (0.0-7.3) H 09/03/21 11:53 Eos % (Auto) 2.1 % (0.0-4.3) 09/03/21 11:53 Baso % (Auto) 0.7 % (0.0-1.8) 09/03/21 11:53 Lymph # (Auto) 1.9 K/mm3 (1.2-5.4) 09/03/21 11:53 [place] # (Auto) 0.6 K/mm3 (0.0-0.8) 09/03/21 11:53 Eos # (Auto) 0.1 K/mm3 (0.0-0.4) 09/03/21 11:53 Baso # (Auto) 0.0 K/mm3 (0.0-0.1) 09/03/21 11:53 Seg Neutrophils % 37.4 % (40.0-70.0) L 09/03/21 11:53 Seg Neutrophils # 1.6 K/mm3 (1.8-7.7) L 09/03/21 11:53 PT 13.5 Sec. (12.2-14.9) 09/03/21 11:53 INR 0.93 (0.87-1.13) 09/03/21 11:53 APTT 27.8 Sec. (24.2-36.6) 09/03/21 11:53 Thrombin Time 17.6 Sec. (15.1-19.6) 09/03/21 11:53 Sodium 138 mmol/L (137-145) 09/03/21 12:43 Potassium 4.9 mmol/L (3.6-5.0) 09/03/21 12:43 Chloride 103.6 mmol/L (98-107) 09/03/21 12:43 Carbon Dioxide 22 mmol/L (22-30) 09/03/21 12:43 Anion Gap 17 mmol/L 09/03/21 12:43 BUN 32 mg/dL (7-17) H 09/03/21 12:43 Creatinine 0.8 mg/dL (0.6-1.2) 09/03/21 12:43 Estimated GFR > 60 ml/min 09/03/21 12:43 BUN/Creatinine Ratio 40 % 09/03/21 12:43 Glucose 97 mg/dL (65-100) 09/03/21 12:43 POC Glucose 120 mg/dL (70-105) H 09/04/21 05:17 Calcium 9.2 mg/dL (8.4-10.2) 09/03/21 12:43 Total Bilirubin 0.50 mg/dL (0.1-1.2) 09/03/21 12:43 AST 25 units/L (5-40) 09/03/21 12:43 ALT 30 units/L (7-56) 09/03/21 12:43 Alkaline Phosphatase 83 units/L (35-129) 09/03/21 12:43 Total Creatine Kinase 123 units/L (30-135) 09/03/21 12:43 CK-MB (CK-2) 2.1 ng/mL (0.0-4.0) 09/03/21 12:43 CK-MB (CK-2) Rel Index 1.7 (0-4) 09/03/21 12:43 Troponin T < 0.010 ng/mL (0.00-0.029) 09/03/21 12:43 Total Protein 7.5 g/dL (6.3-8.2) 09/03/21 12:43 Albumin 4.2 g/dL (3.9-5) 09/03/21 12:43 Albumin/Globulin Ratio 1.3 % 09/03/21 12:43 Urine Color Yellow (Yellow) 09/03/21 11:53 Urine Turbidity Clear (Clear) 09/03/21 11:53 Urine pH 6.0 (5.0-7.0) 09/03/21 11:53 Ur Specific [place] 1.021 (1.003-1.030) 09/03/21 11:53 Urine Protein <15 mg/dl mg/dL (Negative) 09/03/21 11:53 Urine Glucose (UA) Neg mg/dL (Negative) 09/03/21 11:53 Urine Ketones Neg mg/dL (Negative) 09/03/21 11:53 Urine Blood Neg (Negative) 09/03/21 11:53 Urine Nitrite Neg (Negative) 09/03/21 11:53 Urine Bilirubin Neg (Negative) 09/03/21 11:53 Urine Urobilinogen < 2.0 mg/dL (<2.0) 09/03/21 11:53 Ur Leukocyte Esterase Neg (Negative) 09/03/21 11:53 Urine WBC (Auto) 1.0 /HPF (0.0-6.0) 09/03/21 11:53 Urine RBC (Auto) 1.0 /HPF (0.0-6.0) 09/03/21 11:53 U Epithel Cells (Auto) 1.0 /HPF (0-13.0) 09/03/21 11:53 Urine Bacteria (Auto) 1+ /HPF (Negative) 09/03/21 11:53 Urine Opiates Screen Presumptive negative 09/03/21 11:53 Urine Methadone Screen Presumptive negative 09/03/21 11:53 Ur Barbiturates Screen Presumptive negative 09/03/21 11:53 Ur Phencyclidine Scrn Presumptive negative 09/03/21 11:53 Ur Amphetamines Screen Presumptive negative 09/03/21 11:53 U Benzodiazepines Scrn Presumptive negative 09/03/21 11:53 Urine Cocaine Screen Presumptive negative 09/03/21 11:53 U Marijuana (THC) Screen Presumptive negative 09/03/21 11:53 Drugs of Abuse Note Disclamer 09/03/21 11:53 Plasma/Serum Alcohol < 0.01 % (0-0.07) 09/03/21 12:43 Rausch/IV: Voiding Method Bedpan Active Medications - Current Medications Current Medications: Generic Name Dose Route Start Last Admin Trade Name Freq PRN Reason Stop Dose Admin Acetaminophen 650 mg 09/03/21 13:12 09/03/21 23:49 Acetaminophen 325 Mg Tab PO 650 mg Q4H PRN Administration Pain, Mild (1-3) Aspirin 81 mg 09/04/21 15:00 Aspirin Ec 81 Mg Tab PO QDAY [facility] Atorvastatin Calcium 40 mg 09/03/21 22:00 09/03/21 21:22 Atorvastatin 40 Mg Tab PO 40 mg QHS [facility] Administration Bisacodyl 10 mg 09/03/21 13:12 Bisacodyl 10 Mg Rect Supp [place] QDAY PRN Constipation Hydromorphone HCl 0.5 mg 09/03/21 13:12 09/03/21 21:21 Hydromorphone 1 Mg/1 Ml Inj IV 0.5 mg Q23H PRN Administration Pain , Severe (7-10) Magnesium Hydroxide 30 ml 09/03/21 13:12 Magnesium Hydroxide (Mom) Oral Liqd Udc PO Q4H PRN Constipation Metoclopramide HCl 10 mg 09/03/21 13:12 Metoclopramide 10 Mg Tab PO Q6H PRN Nausea And Vomiting Ondansetron HCl 4 mg 09/03/21 13:12 Ondansetron 4 Mg/2 Ml Inj IV Q8H PRN Nausea And Vomiting Promethazine HCl 25 mg 09/03/21 13:12 Promethazine 25 Mg Rect Supp [place] Q6H PRN Nausea And Vomiting Sodium Chloride 10 ml 09/03/21 13:12 Sodium Chloride 0.9% 10 Ml Flush Syringe IV PRN PRN LINE FLUSH Tramadol HCl 50 mg 09/04/21 08:40 09/04/21 08:50 Tramadol 50 Mg Tab PO 50 mg Q6H PRN Administration Pain, Moderate (4-6)
[2021-09-04] MEDS ORDERED: diphenhydrAMINE 25 MG CAP PO SCH (14:45)
[2021-09-04] MEDS: ASPIRIN EC 81 MG TAB PO SCH (14:48)
--- NOTE | 2021-09-04 19:23 | Electrocardiograph Report ---
[facility] Test Date: 2021-09-03 Test Time: 14:45:28 Pat Name: ROZINA TIMMONS Department: Room: A485 Gender: F Special Systems Technician: MIREYA : 1965 Requested By: ODIN BABB Order Number: [id number] Reading MD: Rufino Fonseca Measurements Intervals [place] Rate: 73 P: 66 WY: 162 QRS: 43 QRSD: 75 T: 44 QT: 388 QTc: 428 Interpretive Statements Sinus rhythm No previous ECG available for comparison Electronically Signed On 09-04-2021 19:23:31 EDT by Rufino Fonseca
[2021-09-04] MEDS: FAMOTIDINE 10 MG TAB PO SCH (22:17)
[2021-09-05] MEDS ORDERED: GABAPENTIN 300 MG CAP PO ONE (01:30)
[2021-09-05 05:01] LABS: Hematocrit 32.1 % (30.3-42.9); Hemoglobin 10.7 gm/dl (10.1-14.3); Mean Corpuscular HGB Conc 33 % (30-34); Mean Corpuscular Volume 97 fl (79-97); Platelet Count 394 K/mm3 (140-440); Red Cell Distribution Width 13.1 % (13.2-15.2)
[2021-09-05 05:37] LABS: Chol/HDL Ratio 1.93 %; HDL Cholesterol 58 mg/dL (40-59); LDL Cholesterol,Direct 55 mg/dL (50-130)
[2021-09-05 06:25] LABS: BUN/Creatinine Ratio 23; Blood Urea Nitrogen 23 mg/dL (7-17); Calcium 9.2 mg/dL (8.4-10.2); Hemolysis Index 0
[2021-09-05] MEDS ORDERED: diphenhydrAMINE 25 MG CAP PO ONE (06:30)
[2021-09-05] MEDS: ASPIRIN EC 81 MG TAB PO SCH (09:01)
[2021-09-05] MEDS: FAMOTIDINE 10 MG TAB PO SCH (09:01)
[2021-09-05 12:45] VITALS: BP 102/63
--- NOTE | 2021-09-05 13:03 | Discharge Summary ---
Providers - Providers Date of Admission: 09/03/21 13:14 Date of discharge: 09/05/21 Attending physician: BANDAR BLAND 09/03/21 13:14 Occupational Therapy Evaluate and Treat [CONS] Routine Comment: Reason For Exam: Neuro deficits Physical Therapy Evaluation and Treat [CONS] Routine Comment: Reason For Exam: Neuro deficits Speech Therapy Evaluation and Treat [CONS] Routine Reason For Exam: swallow eval 09/04/21 08:51 Consult to Physician [CONS] Routine Comment: Consulting Provider: ALEXANDRE MENDEZ Physician Instructions: Reason For Exam: Acute CVA, S/p TPA 09/04/21 09:00 Telemedicine [[place] [facility] Consult Order] [CONS] ONCE Comment: Consulting Provider: Reason For Exam: Acute CVA Hospitalization Condition: Fair Hospital course: This is a 55-year-old female with past medical history of HTN, DM, GERD, HLD, OA, Mild Intermittent Asthma, and metabolic Syndrome admitted for acute CVA s/p TPA. 09/04: Fully AAO, on RA, no neuro deficits appreciated. C/o of severe EUCEDA this am, CT head repeated with no significant abnormality. Patient is refusing MRI brain due to increase anxiety. Per patient she can only tolerate open MRIs. Orders placed for lipid panel, PT/OT/Speech, and 2D Echo. Thorough discussion with patient in regards of condition and plan of care. All questions and concerns were addressed at this time. If patient remains stable okay to transfer to Telemetry this afternoon, 24hrs post TPA. 09/05: Clinically stable, PT recommended outpatient PT OT. Vitals noted and stable. Patient will be discharged home in stable condition with outpatient follow-up. Disposition: 30 STILL A PATIENT Final Discharge Diagnosis (Prints w/discharge instructions): #Acute CVA (Cereb rovascular Accident). #Left Hemiparesis. #Hypertension. #Type 2 Diabetes. #GERD (Gastroesophageal Reflux Disease) Time spent for discharge: 34 minutes Core Measure Documentation - Palliative Care Palliative Care/ Comfort Measures: Not Applicable - Core Measures Any of the following diagnoses?: stroke - Stroke Discharge Requirements Statin for LDL = or >70 mg/dl on DC: Yes Anticoag for atrial fib/atrial flutter: Not Applicable Antithrombotic for ischemic stroke: Yes Exam - Physical Exam Narrative exam: GENERAL: well-developed and well-nourished obese female lying on bed appeared to be in no discomfort. HEENT: Normocephalic. Atraumatic. No conjunctival congestion or icterus. Patient has moist mucous membranes. NECK: Supple. Trachea midline. CHEST/LUNGS: Clear to auscultated bilaterally, breathing nonlabored. No wheezes crackles or rhonchi. HEART/CARDIOVASCULAR: Regular in rate and rhythm. S1 and S2 positive. ABDOMEN: Abdomen is soft, nontender. Patient has normal bowel sounds. SKIN: There is no rash. Warm and dry. NEURO: No focal motor deficit. Follows command. MUSCULOSKELETAL: No joint effusion or tenderness. EXTRIMITY: No edema, no cyanosis or clubbing. PSYCH: Cooperative. - Constitutional Vitals: Temp Pulse Resp BP Pulse Ox 97.7 F 70 16 102/63 99 09/05/21 12:10 09/05/21 12:10 09/05/21 12:10 09/05/21 12:10 09/05/21 12:10 Plan Activity: advance as tolerated Weight Bearing Status: Weight Bear as Tolerated Diet: low fat, low salt, diabetic Follow up with: ENID APPLE [Other] - 3-5 Days Prescriptions: Aspirin EC [Halfprin EC] 81 mg PO QDAY #30 tablet
[2021-09-05] MEDS ORDERED: GABAPENTIN 300 MG CAP PO SCH (14:00)
--- NOTE | 2021-09-05 16:10 | Progress Note ---
Assessment and Plan - Patient Problems (1) Bronchial asthma Status: Acute (2) GERD (gastroesophageal reflux disease) Status: Acute Qualifiers: Esophagitis presence: without esophagitis Qualified Code(s): K21.9 - Gastro-esophageal reflux disease without esophagitis (3) Acute CVA (cerebrovascular accident) Status: Acute (4) Diabetes Status: Acute (5) Hypertension Status: Acute Qualifiers: Hypertension type: primary hypertension Qualified Code(s): I10 - Essential (primary) hypertension Subjective Date of service: 09/05/21 Interval history: Patient discharged before I see the patient. Objective Vital Signs - 12hr 09/05/21 09/05/21 09/05/21 07:56 08:00 08:06 Temperature 97.4 F L Pulse Rate 61 67 Pulse Rate [ 61 From Monitor] Pulse Rate [ 62 Right Radial] Respiratory 18 16 Rate Blood Pressure 112/66 O2 Sat by Pulse 98 99 Oximetry 09/05/21 09/05/21 12:00 12:10 Temperature 97.7 F Pulse Rate 60 70 Pulse Rate [ From Monitor] Pulse Rate [ Right Radial] Respiratory 16 Rate Blood Pressure 102/63 O2 Sat by Pulse 99 Oximetry CBC and BMP: 09/05/21 04:13 09/05/21 04:13 ABG, PT/INR, D-dimer: PT/INR, D-dimer PT 13.5 Sec. (12.2-14.9) 09/03/21 11:53 INR 0.93 (0.87-1.13) 09/03/21 11:53 Abnormal lab findings: Abnormal Labs 09/03/21 09/03/21 09/03/21 11:53 12:43 23:07 WBC 4.3 L RBC 3.44 L MCH 34 H MCHC 35 H RDW 12.9 L Lymph % (Auto) 46.2 H [place] % (Auto) 13.6 H Seg Neutrophils % 37.4 L Seg Neutrophils # 1.6 L BUN 32 H POC Glucose 184 H 09/04/21 09/04/21 09/04/21 05:17 16:41 20:16 WBC RBC MCH MCHC RDW Lymph % (Auto) [place] % (Auto) Seg Neutrophils % Seg Neutrophils # BUN POC Glucose 120 H 109 H 118 H 09/05/21 09/05/21 04:13 04:13 WBC RBC 3.30 L MCH MCHC RDW 13.1 L Lymph % (Auto) [place] % (Auto) Seg Neutrophils % Seg Neutrophils # BUN 23 H POC Glucose
== END 2021-09-05 16:18 | disposition home health service (06) | DRG 62 ==
LOC: ED 11:47 → CC1 13:14 → 4A 09-04 16:07
PROVIDERS: ADMIT Internal Medicine; ATTEND Internal Medicine
DX: I63.9 Cerebral infarction, unspecified (principal); G81.94 Hemiplegia, unspecified affecting left nondominant side; I10 Essential (primary) hypertension; K21.9 Gastro-esophageal reflux disease without esophagitis; M19.90 Unspecified osteoarthritis, unspecified site; J45.909 Unspecified asthma, uncomplicated; E11.8 Type 2 diabetes mellitus with unspecified complications; E88.81 Metabolic syndrome and other insulin resistance; R55 Syncope and collapse; E78.2 Mixed hyperlipidemia; Z88.6 Allergy status to analgesic agent; Z88.0 Allergy status to penicillin; Z88.8 Allergy status to other drugs, medicaments and biological substances; Z91.018 Allergy to other foods; Z91.013 Allergy to seafood; Z83.3 Family history of diabetes mellitus; Z82.49 Family history of ischemic heart disease and other diseases of the circulatory system; Z90.49 Acquired absence of other specified parts of digestive tract
CPT/HCPCS: 36415; 70450; 70496; 70498; 80048; 80053; 80061; 80307; 80320; 81001; 82550; 82553; 82962; 83036; 84484; 85025; 85027; 85610; 85670; 85730; 93005; 93306; 93880; G0378; J3490; C8929; G0480; J1170; J1200; J2930; J2997; Q9967